=== PATIENT | female | born 1935 | race Caucasian/White ===

== ENCOUNTER 2018-11-22 14:01 | Inpatient (IN) | payer MEDICARE, OTHER ==
[~2018-11-22] VITALS: Ht 162.6 cm; Wt 46.7 kg
[~2018-11-22 14:01] MED LIST: ACET-868 PO; ARIP2TAB3 PO; DIVA125T2 PO; DIVA250T4 PO; DOCU100C68 PO; DOES NOT RECALL MEDS; ESCI10TA PO; LORA-258 PO; OLAN5TAB3 PO; SENN-18 PO
[2018-11-22] MEDS ORDERED: LEVO25TA9 PO (14:41)
[2018-11-22] MEDS ORDERED: SIMV10TA6 PO (14:41)
[2018-11-22] MEDS ORDERED: SEVE800T8 PO (14:41)
[2018-11-22] MEDS ORDERED: BUPR300T54 PO (14:41)
[2018-11-22] MEDS ORDERED: FERR325T23 PO (14:41)
[2018-11-22] MEDS ORDERED: OMEP20CA10 PO (14:41)
[2018-11-22] MEDS ORDERED: FOLI1TAB16 PO (14:41)
[2018-11-22] MEDS ORDERED: FOLI0.8T2 PO (14:41)
[2018-11-22] MEDS ORDERED: DIVA-78 PO (14:41)
--- NOTE | 2018-11-22 14:53 | NUR ---
PT PRESENTS TO ER C/O CONFUSION AND AGITATION WITH RECENT DX UTI FROM SNF. PER DAUGHTER, PT IS NON-COMPLIANT WITH MEDICATIONS RECENTLY. PT IS GETTING AGITATED WHEN CARE IS RENDERED. RESP EVEN UNLABORED. SKIN WARM DRY. IN ER BED 16.
[2018-11-22 16:10] LABS: APPEARANCE,URINE Cloudy (CLEAR); BILIRUBIN,URINE Negative (NEGATIVE); BLOOD, URINE Small Ery/uL (NEGATIVE); COLOR,URINE Yellow (YELLOW); KETONES,URINE Negative (NEGATIVE); LEUKOCYTE ESTERASE ,URINE Large (NEGATIVE); NITRITE, URINE Negative (NEGATIVE); PH,URINE 8.5 (5.0-8.0); PROTEIN,URINE 30 mg/dl (NEGATIVE); UGLUCOSE Negative (NEGATIVE); UROBILINOGEN,URINE 0.2 EU/dL (0.2)
--- NOTE | 2018-11-22 16:13 | NUR ---
LON SHEN, CALLED FROM [facility]. STATES SPECIMENS ARE HEMOLYZED AND SHE WILL ASK GRANITE INSTALLER TO COME REDRAW
[2018-11-22 16:18] LABS: BACTERIA,URINE Few /HPF (None Seen); SQUAMOUS EPITHELIAL CELL,UR Few /HPF (None Seen); WBC,URINE 51-80 /HPF (0-3)
[2018-11-22 16:36] LABS: BASOPHILS % (AUTO) 0.6 % (0.0-2.0); HEMATOCRIT 35 % (33-45); HEMOGLOBIN 11.5 g/dL (11.5-14.8); LYMPHOCYTES # (AUTO) 1.7 /CMM (0.8-4.8); LYMPHOCYTES % (AUTO) 30.8 % (20.0-44.0); MEAN CORPUSCULAR HGB CONC 33 g/dl (31.0-36.0); MEAN CORPUSCULAR VOLUME 109 fL (82-100); MONOCYTES # (AUTO) 0.5 /CMM (0.1-1.30); MONOCYTES % (AUTO) 8.6 % (2.0-12.0); NEUTROPHILS # (AUTO) 3.2 /CMM (1.8-8.9); PLATELET COUNT (AUTO) 132 /CMM (150-450); RED BLOOD CELL COUNT(AUTO) 3.23 MIL/uL (4.0-5.2); WHITE BLOOD COUNT (AUTO) 5.4 K/uL (4.3-11.0)
[2018-11-22 16:45] LABS: CALCIUM, SERUM 9.5 mg/dL (8.5-10.1); CARBON DIOXIDE 30 mmol/L (21-32); CHLORIDE 106 mmol/L (98-107); CREATININE 3.5 mg/dL (0.6-1.3); GLUCOSE 103 mg/dL (74-106); POTASSIUM 3.7 mmol/L (3.5-5.1); SODIUM SERUM 144 mmol/L (136-145); UREA NITROGEN, BLOOD 48 mg/dL (7-18)
[2018-11-22 16:59] LABS: ALANINE AMINOTRANSFERASE 29 U/L (12-78); ALBUMIN 3.1 g/dL (3.4-5.0); ALCOHOL, BLOOD < 3 mg/dL (0-0); ALKALINE PHOSPHATASE 97 U/L (46-116); ASPARTATE AMINOTRANSFERASE 24 U/L (15-37); BILIRUBIN,DIRECT 0.1 mg/dL (0.0-0.2); BILIRUBIN,TOTAL 0.2 mg/dL (0.2-1.0); TOTAL PROTEIN, SERUM 6.7 g/dL (6.4-8.2)
[2018-11-22 17:00] LABS: ACETAMINOPHEN < 2 ug/ml (10-30); SALICYLATE 1.3 mg/dL (2.8-20.0)
--- NOTE | 2018-11-22 17:12 | NUR ---
JONNIE GARNICA [phone] - PSYCHIATRIST
[2018-11-22] MEDS ORDERED: CEFTRIAXONE 2 G in IV D5W 100 ML IV SCH (17:30)
--- NOTE | 2018-11-22 17:32 | NUR ---
CALLED PHARMACY FOR LASHANDA
--- NOTE | 2018-11-22 17:35 | NUR ---
DR. GARNICA SEEN PATIENT AT , PER MD, SHE FOLLOWS PATIENT AT [facility], AND WILL FOLLOW THE PATIENT TO MEDICAL FLOOR.
[2018-11-22] MEDS ORDERED: ONDANSETRON HCL/PF 4 MG/2 ML VIAL IVP PRN (18:00)
[2018-11-22] MEDS ORDERED: Z GUARD REMEDY 2 OZ OINT TP PRN (18:00)
[2018-11-22] MEDS ORDERED: ACETAMINOPHEN 325 MG TABLET PO PRN (18:00)
[2018-11-22] MEDS ORDERED: MAGNESIUM HYDROXIDE 30 ML UDC PO PRN (18:00)
[2018-11-22] MEDS ORDERED: HYDROCODONE/APAP 5/325MG 1 EACH TABLET PO PRN (18:00)
[2018-11-22] MEDS ORDERED: MAG HYDROX/AL HYDROX/SIMETH 30 ML UDC PO PRN (18:00)
--- NOTE | 2018-11-22 18:01 | NUR ---
CALLED DIETARY FOR RENAL DIET
--- NOTE | 2018-11-22 18:19 | NUR ---
GIVEN DINNER TRAY. AWAITING BED ASSIGNMENT
--- NOTE | 2018-11-22 18:27 | NUR ---
CALLEED NURSING DIRECTOR GENERAL TO F/U ON BED. PER DAVID, ON BED UNTIL AFTER SHIFT CHANGE BECAUSE PT REQUIRES A SITTER
--- NOTE | 2018-11-22 18:30 | NUR ---
ms/rn notes NEW ADMITTED PATIENT IS A83 YO FEMALE FROM [facility] WITH DX OF UTI AND ENCEPHALOPATHY, ALERT, ORIENTED, PARTICIPATIVE TO CARE. WITH HX OF BEHAVIOR PROBLEM . INCONTINENT USES DIAPER. VITAL SIGNS NORMAL. FALL PRECAUTION. SKIN CHECK, BELONGINGS INVENTORIED. POLST RECEIVED ULL CODE, ABLE TO SWALLOW MEDS, ON HD, WILL MONITOR. VITAL SIGNS CHECK.
--- NOTE | 2018-11-22 19:14 | NUR ---
REPORT GIVEN TO HERB BURNS FOR ZENA
--- NOTE | 2018-11-22 19:15 | NUR ---
RECEIVED REPORT FROM JHON FOR ZENA
--- NOTE | 2018-11-22 19:51 | NUR ---
[facility] 309-1 DX: ENCEPHALOPATHY, UTI DR. LAST
[2018-11-22 20:00] VITALS: BP 120/56
--- NOTE | 2018-11-22 20:23 | NUR ---
GAVE REPORT TO RN FOR 309-1 FOR ZENA
[2018-11-22 20:30] VITALS: BP 120/56
--- NOTE | 2018-11-22 20:45 | NUR ---
PT TRANSFERRED TO MS BED 309-1 VIA SIDRA WITH EMT
[2018-11-22] MEDS ORDERED: SEVELAMER CARBONATE 800 MG TABLET PO ONE (21:30)
[2018-11-22] MEDS: SIMVASTATIN 10 MG TABLET PO SCH (22:03)
[2018-11-22] MEDS: DIVALPROEX SODIUM 500 MG TABLET.DR PO SCH (22:06)
[2018-11-22] MEDS: ACETAMINOPHEN 325 MG TABLET PO PRN (23:01)
--- NOTE | 2018-11-23 06:00 | NUR ---
MS/RN NOTES PATIENT IN BED, RESTING COMFORTABLY IN BED, ABLE TO SLEEP DURING THE NIGHT, CAN COOPERATE , MONITORED FOR SAFETY BY SITTER. CALL LIGHTS WITHIN REACH. BED LOCK. SKIN WARM TO TOUCH.WILL ENDORAE TO AM RN FOR ZENA.
[2018-11-23 06:24] LABS: CALCIUM, SERUM 8.7 mg/dL (8.5-10.1); CARBON DIOXIDE 26 mmol/L (21-32); CHLORIDE 106 mmol/L (98-107); CREATININE 4.5 mg/dL (0.6-1.3); GLUCOSE 89 mg/dL (74-106); MAGNESIUM 2.4 mg/dL (1.8-2.4); PHOSPHORUS 4.2 mg/dL (2.5-4.9); POTASSIUM 3.4 mmol/L (3.5-5.1); SODIUM SERUM 142 mmol/L (136-145); UREA NITROGEN, BLOOD 53 mg/dL (7-18)
[2018-11-23 06:25] LABS: CHOLESTEROL 187 mg/dL (<200); HDL CHOLESTEROL 61 mg/dL (40-60); LDL 89 mg/dL (0-99); TRIGLYCERIDES 184 mg/dL (30-150)
[2018-11-23 06:39] LABS: BASOPHILS % (AUTO) 0.5 % (0.0-2.0); EOSINOPHILS % (AUTO) 3.8 % (0.0-6.0); HEMATOCRIT 31 % (33-45); HEMOGLOBIN 10.2 g/dL (11.5-14.8); LYMPHOCYTES % (AUTO) 42.3 % (20.0-44.0); MEAN CORPUSCULAR HGB CONC 33 g/dl (31.0-36.0); MEAN CORPUSCULAR VOLUME 108 fL (82-100); MONOCYTES # (AUTO) 0.3 /CMM (0.1-1.30); NEUTROPHILS # (AUTO) 2.2 /CMM (1.8-8.9); NEUTROPHILS % (AUTO) 46.4 % (43.0-81.0); PLATELET COUNT (AUTO) 126 /CMM (150-450); RED BLOOD CELL COUNT(AUTO) 2.84 MIL/uL (4.0-5.2); WHITE BLOOD COUNT (AUTO) 4.7 K/uL (4.3-11.0)
--- NOTE | 2018-11-23 07:40 | NUR ---
Nurse Notes: received report from the night nurse Darlene Mtz RN, patient with IV infusing NS @ 75 cc per hour. Patient needs ortho consult, doctor to doctor to be notified. IV infusing in right AC. Pain level is 6-7/10. having bilateral gout pain. Addendum: 11/23/18 at 1633 by COLBY BLAS RN above note charted on wrong patient. Received report this morning by Jahaira Arellano RN, Received patient resting in bed, sitter in room, watching other patient. Patient also requires more total care.
[2018-11-23 08:00] VITALS: BP 124/104
[2018-11-23] MEDS: SEVELAMER CARBONATE 800 MG TABLET PO SCH ×3 (08:00→17:22)
[2018-11-23 08:03] LABS: EOSINOPHILS % (MANUAL) 2 % (0-4); LYMPHOCYTES % (MANUAL) 49 % (16-48); MONOCYTES % (MANUAL) 6 % (0-11.0); NEUTROPHILS % (MANUAL) 43 (42-76)
[2018-11-23] MEDS: PANTOPRAZOLE 40 MG TABLET.DR PO SCH ×2 (08:30→17:22)
[2018-11-23] MEDS: LEVOTHYROXINE SODIUM 25 MCG TABLET PO SCH (08:31)
[2018-11-23] MEDS: FOLIC ACID 1 MG TABLET PO SCH (09:00)
[2018-11-23] MEDS: BUPROPION XL 150 MG TAB.ER.24 PO SCH (09:00)
[2018-11-23] MEDS: DOCUSATE SODIUM 100 MG CAPSULE PO SCH ×2 (09:00→17:22)
[2018-11-23] MEDS: VIT B CMPLX 3/FA/VIT C/BIOTIN 1 TAB TABLET PO SCH (09:00)
[2018-11-23] MEDS: FERROUS SULFATE (325 MG) 325 MG/TAB TABLET PO SCH (09:00)
[2018-11-23] MEDS: DIVALPROEX SODIUM 500 MG TABLET.DR PO SCH (09:00)
--- NOTE | 2018-11-23 13:30 | NUR ---
Nurse Notes: Both meals taken well, also receiving IV fluids. patient needs social work nurse. Addendum: 11/23/18 at 1647 by COLBY BLAS RN No social work nurse is ordered. Patient will have dialysis tomorrow 11/24, patient usually has dialysis on and Sunday. Addendum: 11/23/18 at 1650 by COLBY BLAS RN Patient is only heplock. Patient was able to take lunch with the OFFICE TECHNOLOGIST. Patient refused her medications this morning, spitting out food, and saying no to taking medications. Breakfast was not taken, lunch taken well.
[2018-11-23 16:00] VITALS: BP 117/63
[2018-11-23] MEDS: CEFTRIAXONE 1 G in IV D5W 50 ML IV SCH (18:21)
--- NOTE | 2018-11-23 19:20 | NUR ---
MSRN RECEIVED SCREAMING, YELLING, UNCOOPERATIVE. REFUSED ANY ASSESSMENT, WANTED TO BE LEFT ALONE. PROVIDED PRIVACY WITH CLOSE SUPERVISION. CONFUSED. TO CONTINUE.
[2018-11-23 20:00] VITALS: BP 154/82
[2018-11-23] MEDS: DIVALPROEX SODIUM 250 MG TABLET.DR PO SCH (21:46)
[2018-11-23] MEDS: SIMVASTATIN 10 MG TABLET PO SCH (21:46)
[2018-11-23] MEDS: OLANZAPINE 2.5 MG TABLET PO SCH (21:47)
--- NOTE | 2018-11-23 22:00 | NUR ---
MSRN REFUSED TO TAKE HER DUE MEDS. PREFERS MALE STAFF, TOOK MEDS ON HER OWN AFTER FEW MINUTES. POSITIONS SELF PER COMFORT. CLOSELY WATCHED
--- NOTE | 2018-11-24 03:24 | NUR ---
MSRN SLEEPING APPEARS COMFORTABLE AGREEDTO HAVE LATE HS CARE WITH SITTER.
--- NOTE | 2018-11-24 07:00 | NUR ---
MSRN ENDORSED DTO INCOMING RN FOR CONTINUITY OF CARE.
--- NOTE | 2018-11-24 07:30 | NUR ---
MSRN. PT RECEIVED A&0X2, TOLERATING ROOM AIR WITHOUT DISTRESS AND DENIES PAIN, PT WITHOUT OBVIOUS DISTRESS OR DISCOMFORT. PT WITH IVC AT R AC PAINFUL TO FLUSH, WILL D/C AND REPLACE. PT WITH 1:1 FOR SAFETY. BED IN LOWEST LOCKED POSITION WITH HANDRAILSX3 CAN CALL CALABRESE WITHIN REACH. PT REPOSITIONED AND FEELS FLOATED. PT BRIEFED ON TODAY'S POC AND IS WITHOUT CONCERN OR COMPLAINT AT THIS TIME.
[2018-11-24 08:00] VITALS: BP 132/59
[2018-11-24] MEDS: DIVALPROEX SODIUM 250 MG TABLET.DR PO SCH ×2 (08:32→21:35)
[2018-11-24] MEDS: BUPROPION XL 150 MG TAB.ER.24 PO SCH (08:33)
[2018-11-24] MEDS: PANTOPRAZOLE 40 MG TABLET.DR PO SCH (08:38)
[2018-11-24] MEDS: VIT B CMPLX 3/FA/VIT C/BIOTIN 1 TAB TABLET PO SCH (08:38)
[2018-11-24] MEDS: FERROUS SULFATE (325 MG) 325 MG/TAB TABLET PO SCH (08:38)
[2018-11-24] MEDS: SEVELAMER CARBONATE 800 MG TABLET PO SCH ×3 (08:38→17:33)
[2018-11-24] MEDS: DOCUSATE SODIUM 100 MG CAPSULE PO SCH ×2 (08:38→17:33)
[2018-11-24] MEDS: FOLIC ACID 1 MG TABLET PO SCH (08:38)
[2018-11-24] MEDS: LEVOTHYROXINE SODIUM 25 MCG TABLET PO SCH (08:38)
[2018-11-24] MEDS ORDERED: POTASSIUM CHLORIDE 20 MEQ TAB.PRT.SR PO ONE (10:30)
[2018-11-24 12:53] LABS: CARBON DIOXIDE 26 mmol/L (21-32); CHLORIDE 108 mmol/L (98-107); CREATININE 5.6 mg/dL (0.6-1.3); GLUCOSE 108 mg/dL (74-106); MAGNESIUM 2.6 mg/dL (1.8-2.4); PHOSPHORUS 3.9 mg/dL (2.5-4.9); POTASSIUM 4.3 mmol/L (3.5-5.1); SODIUM SERUM 143 mmol/L (136-145); UREA NITROGEN, BLOOD 63 mg/dL (7-18)
[2018-11-24 13:28] LABS: BASOPHILS % (AUTO) 0.4 % (0.0-2.0); EOSINOPHILS % (AUTO) 4.7 % (0.0-6.0); HEMATOCRIT 32 % (33-45); LYMPHOCYTES # (AUTO) 1.5 /CMM (0.8-4.8); LYMPHOCYTES % (AUTO) 31.7 % (20.0-44.0); MEAN CORPUSCULAR HGB CONC 34 g/dl (31.0-36.0); MEAN CORPUSCULAR VOLUME 109 fL (82-100); MONOCYTES # (AUTO) 0.3 /CMM (0.1-1.30); MONOCYTES % (AUTO) 7.3 % (2.0-12.0); NEUTROPHILS # (AUTO) 2.6 /CMM (1.8-8.9); NEUTROPHILS % (AUTO) 55.9 % (43.0-81.0); PLATELET COUNT (AUTO) 147 /CMM (150-450); RED BLOOD CELL COUNT(AUTO) 2.97 MIL/uL (4.0-5.2); WHITE BLOOD COUNT (AUTO) 4.7 K/uL (4.3-11.0)
[2018-11-24] MEDS ORDERED: NEPRO VAN 237 ML CAN PO PRN (14:30)
[2018-11-24 14:37] LABS: EOSINOPHILS % (MANUAL) 8 % (0-4); LYMPHOCYTES % (MANUAL) 29 % (16-48); MONOCYTES % (MANUAL) 3 % (0-11.0); NEUTROPHILS % (MANUAL) 56 (42-76); REACTIVE LYMPHOCYTES 4 % (0-0)
[2018-11-24 16:00] VITALS: BP 104/56
[2018-11-24] MEDS: CEFTRIAXONE 1 G in IV D5W 50 ML IV SCH (17:36)
--- NOTE | 2018-11-24 18:25 | NUR ---
MSRN. PT REMAINS A&0X2, TOLERATING ROOM AIR WITHOUT DISTRESS AND DENIES PAIN, PT WITHOUT OBVIOUS DISTRESS OR DISCOMFORT. PT WITH IVC AT R WRIST WITH IVC AT TKO. PT WITH 1:1 FOR SAFETY. BED IN LOWEST LOCKED POSITION WITH HANDRAILSX3 CAN CALL CALABRESE WITHIN REACH. PT REPOSITIONED AND FEELS FLOATED Q2HR OR SOONER. PT IS WITHOUT CONCERN OR COMPLAINT AT THIS TIME. WILL ENDORSE TO NIGHT NURSE AT BEDSIDE FOR ZENA.
--- NOTE | 2018-11-24 19:15 | NUR ---
MS/RN NOTES RECEIVED PT. LYING IN BED. PT. IS AWAKE, ALERT AND ORIENTED X2. BREATHING EVEN AND UNLABORED ON ROOM AIR. NO SOB, RESPIRATORY DISTRESS OR COMPLAINTS OF PAIN NOTED AT THIS TIME. PT. WITH RIGHT WRIST 22 GAUGE IV SALINE LOCK PRESENT, PATENT AND INTACT. PT. WITH 1:1 SITTER PRESENT AT BEDSIDE. BED LOCKED AND IN LOWEST POSITION, SIDE RAILS UP X3, BED ALARM ON, CALL LIGHT WITHIN REACH, WILL CONTINUE TO MONITOR.
[2018-11-24 20:00] VITALS: BP 105/55
[2018-11-24] MEDS: SIMVASTATIN 10 MG TABLET PO SCH (21:35)
[2018-11-24] MEDS: OLANZAPINE 2.5 MG TABLET PO SCH (21:35)
--- NOTE | 2018-11-25 07:03 | NUR ---
MS/RN NOTES PT. IS LYING IN BED. PT. IS AWAKE, ALERT AND ORIENTED X2. BREATHING EVEN AND UNLABORED ON ROOM AIR. NO SOB, RESPIRATORY DISTRESS OR COMPLAINTS OF PAIN NOTED AT THIS TIME. PT. WITH RIGHT WRIST 22 GAUGE IV SALINE LOCK PRESENT, PATENT AND INTACT. PT. WITH 1:1 SITTER PRESENT AT BEDSIDE. ALL PT. NEEDS MET. BED LOCKED AND IN LOWEST POSITION, SIDE RAILS UP X3, BED ALARM ON, CALL LIGHT WITHIN REACH, WILL ENDORSE TO DAYSHIFT NURSE FOR CONTINUITY OF CARE.
[2018-11-25 08:00] VITALS: BP 119/62
[2018-11-25] MEDS: SEVELAMER CARBONATE 800 MG TABLET PO SCH ×3 (08:00→17:34)
[2018-11-25] MEDS: LEVOTHYROXINE SODIUM 25 MCG TABLET PO SCH (08:36)
[2018-11-25] MEDS: PANTOPRAZOLE 40 MG TABLET.DR PO SCH (08:36)
--- NOTE | 2018-11-25 08:45 | NUR ---
MS RN OPENING NOTES PT AWAKE IN BED. A/O X1-2. NOT IN ANY KIND OF DISTRESS. RESPIRATIONS EVEN AND UNLABORED. DENIES ANY PAIN OR DISCOMFORT AT THIS TIME. PIV ON RIGHT WRIST G22, INTACT AND OPERATIONAL AND WITH NS AT TKO. KEPT COMFORTABLE, CLEAN AND DRY. HOB ELEVATED, IN LOW AND LOCKED POSITION, SIDE RAILS UP X3 AND ON 1:1 SITTER. WILL CONTINUE TO MONITOR.
[2018-11-25] MEDS: DOCUSATE SODIUM 100 MG CAPSULE PO SCH ×2 (10:11→17:33)
[2018-11-25] MEDS: VIT B CMPLX 3/FA/VIT C/BIOTIN 1 TAB TABLET PO SCH (10:12)
[2018-11-25] MEDS: BUPROPION XL 150 MG TAB.ER.24 PO SCH (10:12)
[2018-11-25] MEDS: FOLIC ACID 1 MG TABLET PO SCH (10:12)
[2018-11-25] MEDS: FERROUS SULFATE (325 MG) 325 MG/TAB TABLET PO SCH (10:12)
[2018-11-25 11:21] LABS: BASOPHILS % (AUTO) 0.3 % (0.0-2.0); EOSINOPHILS % (AUTO) 4.4 % (0.0-6.0); HEMATOCRIT 32 % (33-45); HEMOGLOBIN 10.9 g/dL (11.5-14.8); LYMPHOCYTES # (AUTO) 1.4 /CMM (0.8-4.8); LYMPHOCYTES % (AUTO) 25.2 % (20.0-44.0); MEAN CORPUSCULAR HGB CONC 34 g/dl (31.0-36.0); MEAN CORPUSCULAR VOLUME 107 fL (82-100); MONOCYTES # (AUTO) 0.5 /CMM (0.1-1.30); MONOCYTES % (AUTO) 8.5 % (2.0-12.0); NEUTROPHILS # (AUTO) 3.5 /CMM (1.8-8.9); NEUTROPHILS % (AUTO) 61.6 % (43.0-81.0); PLATELET COUNT (AUTO) 124 /CMM (150-450); RED BLOOD CELL COUNT(AUTO) 3.02 MIL/uL (4.0-5.2); WHITE BLOOD COUNT (AUTO) 5.7 K/uL (4.3-11.0)
[2018-11-25 11:35] LABS: CALCIUM, SERUM 8.6 mg/dL (8.5-10.1); CARBON DIOXIDE 27 mmol/L (21-32); CHLORIDE 103 mmol/L (98-107); CREATININE 4.7 mg/dL (0.6-1.3); GLUCOSE 100 mg/dL (74-106); MAGNESIUM 2.4 mg/dL (1.8-2.4); PHOSPHORUS 3.8 mg/dL (2.5-4.9); POTASSIUM 4.6 mmol/L (3.5-5.1); SODIUM SERUM 139 mmol/L (136-145); UREA NITROGEN, BLOOD 48 mg/dL (7-18)
--- NOTE | 2018-11-25 13:55 | NUR ---
PT ENDORSED TO KATY ANGEL, POC AND PT STATUS DISCUSSED AT BEDSIDE.
[2018-11-25 16:00] VITALS: BP 132/63
--- NOTE | 2018-11-25 16:40 | NUR ---
1600 ASSUMED CARE OF PATIENT. PATIENT ALERT AND ORIENTED TIMES 2-3. PATIENT HAS NO SIGNS OF DISTRESS OR DISCOMFORT AT THIS TIME. PATIENT DENIES SI AND HI AT THIS TIME. PATIENT HAS 1:1 JONNIE RN AT BEDSIDE. WILL CONTINUE TO MONITOR THROUGHOUT SHIFT. JEANNE CRISOSTOMO RN
[2018-11-25 20:00] VITALS: BP 113/57
[2018-11-25] MEDS: OLANZAPINE 2.5 MG TABLET PO SCH (21:05)
[2018-11-25] MEDS: DIVALPROEX SODIUM 250 MG TABLET.DR PO SCH (21:05)
[2018-11-25] MEDS: SIMVASTATIN 10 MG TABLET PO SCH (21:05)
--- NOTE | 2018-11-25 21:26 | NUR ---
MS/RN OPENING NOTES PATIENT IN BED, AWAKE, ALERT X1, ABLE TO VERBALIZE NEEDS, SKIN WARM TO TOUCH. RESPIRATIONS EVEN AND UNLABORED, REQUIRE ASSISTANCE FOR REPOSITION AND TURNING, WITH SITTER DUE TO BEHAVIOR PROBLEM. KEPT WARM WILL MONITOR.
[2018-11-25 21:33] VITALS: BP 132/63
[2018-11-25 21:34] VITALS: BP 132/63
--- NOTE | 2018-11-26 00:06 | NUR ---
MS/RN NOTES PATIENT TRIES TO JUMP IN BED,AND SITTER AT BEDSIDE, SAFETY MEASURES PROVIDED
--- NOTE | 2018-11-26 06:41 | NUR ---
309-1 MS/RN NOTES PATIENT IN BED, SLEPT INTERMITENTLY , REQUIRE ASSSISTANCE FOR SAFETY PATIENT ATTEMPTS TO JUMP IN BED AND CAN EASILY CHANGE BEHAVIOR AT IMPULSE. RESPIRATIONS EVEN AND UNLABORED, KEPT WARM. WILL CONTINUE TO MONITOR, WILL ENDORSE TO AM RN FOR ZENA.
--- NOTE | 2018-11-26 07:10 | NUR ---
RN OPENING NOTES PT AWAKE AND RESTING IN BED. PT CONFUSED. 1:1 SITTER AT BEDSIDE. NO APPARENT S/S OF PAIN, DISTRESS OR SOB AT THIS TIME. PT HAS A RIGHT WRIST IV, INTACT AND PATENT. SAFETY PRECAUTIONS IN PLACE, BED IN LOWEST LOCKED POSITION, X2 SIDE RAILS UP AND CALL LIGHT WITHIN REACH. WILL CONTINUE TO MONITOR.
[2018-11-26] MEDS: PANTOPRAZOLE 40 MG TABLET.DR PO SCH (07:30)
[2018-11-26] MEDS: LEVOTHYROXINE SODIUM 25 MCG TABLET PO SCH (07:30)
[2018-11-26 08:00] VITALS: BP 146/70
[2018-11-26] MEDS: SEVELAMER CARBONATE 800 MG TABLET PO SCH ×3 (08:00→17:02)
[2018-11-26] MEDS: FOLIC ACID 1 MG TABLET PO SCH (09:00)
[2018-11-26] MEDS: DOCUSATE SODIUM 100 MG CAPSULE PO SCH ×2 (09:00→16:58)
[2018-11-26] MEDS: BUPROPION XL 150 MG TAB.ER.24 PO SCH (09:00)
[2018-11-26] MEDS: VIT B CMPLX 3/FA/VIT C/BIOTIN 1 TAB TABLET PO SCH (09:00)
[2018-11-26] MEDS: FERROUS SULFATE (325 MG) 325 MG/TAB TABLET PO SCH (09:00)
[2018-11-26] MEDS: OLANZAPINE 2.5 MG TABLET PO SCH ×2 (13:34→21:03)
[2018-11-26 16:15] LABS: CALCIUM, SERUM 8.6 mg/dL (8.5-10.1); CARBON DIOXIDE 26 mmol/L (21-32); CHLORIDE 105 mmol/L (98-107); CREATININE 5.5 mg/dL (0.6-1.3); GLUCOSE 120 mg/dL (74-106); MAGNESIUM 2.7 mg/dL (1.8-2.4); PHOSPHORUS 4.3 mg/dL (2.5-4.9); POTASSIUM 4.5 mmol/L (3.5-5.1); SODIUM SERUM 141 mmol/L (136-145); UREA NITROGEN, BLOOD 65 mg/dL (7-18)
[2018-11-26 17:55] VITALS: BP 125/67
--- NOTE | 2018-11-26 19:00 | NUR ---
RN OPENING NOTES PT AWAKE AND RESTING IN BED. PT CONFUSED AND COMBATIVE. PT NEEDS FREQUENT REORIENTING AND REDIRECTING. 1:1 SITTER AT BEDSIDE. NO APPARENT S/S OF PAIN, DISTRESS OR SOB AT THIS TIME. PT HAS A RIGHT WRIST IV, INTACT AND PATENT. SAFETY PRECAUTIONS IN PLACE, BED IN LOWEST LOCKED POSITION, X2 SIDE RAILS UP AND CALL LIGHT WITHIN REACH. WILL ENDORSE TO DAY SHIFT NURSE FOR CONTINUITY OF CARE.
[2018-11-26 19:30] VITALS: BP 154/77
--- NOTE | 2018-11-26 19:31 | NUR ---
MS/RN OPENING NOTES RECEIVED PATIENT IN BED, AWAKE, CAN RESPON WITH SIMPLE QUESTIONS, REQUIRE AT SITTER FOR SAFETY PATIETN HAS BEHAVIOR PROBLEM AND IMPULSIVE AT TIMES. RESPIRATIONS EVEN AND UNLABORED, SKIN WARM TO TOUCH, KEPT WARM. OFFERED AND PROVIDE SNACKS. KEPT BED LOCKED, CALL LIGHTS WITHIN REACH. WILL MONITOR. IV SITE ON RIGHT WRIST AT 20 GAUGE. WILL MONITOR.
[2018-11-26 19:48] VITALS: BP 154/77
[2018-11-26 20:00] VITALS: BP 154/77
--- NOTE | 2018-11-26 20:18 | NUR ---
MS/RN NOTES DIALYSIS NURSE AT BEDSIDE ,PATIENT AWAKE, ALERT AND PARTICIPATIVE TO CARE AND COMPLIANT WITH DIALYSIS AT THIS TIME,WILL MONITOR.
[2018-11-26] MEDS: DIVALPROEX SODIUM 250 MG TABLET.DR PO SCH (21:04)
[2018-11-26] MEDS: SIMVASTATIN 10 MG TABLET PO SCH (21:04)
--- NOTE | 2018-11-27 06:30 | NUR ---
MS/RN NOTES PATIENT ABLE TO SLEEP DURING THE NIGHT, CALM AND COOPERATIVE WITH SITTER. RESPIRATIONS EVEN AND UNLABORE, NO GUARDING OR GRIMACE. WILL ENDORSE TO AM RN FOR ZENA.
--- NOTE | 2018-11-27 08:05 | NUR ---
ms rn received on be, awake,alert,oriented x2,not in any form of distress, denies pain at this time.w/ sitter at bedside for safety, will monitor patient.
--- NOTE | 2018-11-27 09:50 | NUR ---
ms rn was seen by nitin bloom/ orders made and carried out.
[2018-11-27] MEDS: BUPROPION XL 150 MG TAB.ER.24 PO SCH (09:52)
[2018-11-27] MEDS: OLANZAPINE 2.5 MG TABLET PO SCH ×2 (09:52→21:17)
[2018-11-27] MEDS: LEVOTHYROXINE SODIUM 25 MCG TABLET PO SCH (09:54)
[2018-11-27] MEDS: FOLIC ACID 1 MG TABLET PO SCH (09:56)
[2018-11-27] MEDS: DOCUSATE SODIUM 100 MG CAPSULE PO SCH ×2 (09:56→18:36)
[2018-11-27] MEDS: VIT B CMPLX 3/FA/VIT C/BIOTIN 1 TAB TABLET PO SCH (09:56)
[2018-11-27] MEDS: SEVELAMER CARBONATE 800 MG TABLET PO SCH ×3 (09:56→18:37)
[2018-11-27] MEDS: FERROUS SULFATE (325 MG) 325 MG/TAB TABLET PO SCH (09:56)
[2018-11-27] MEDS: PANTOPRAZOLE 40 MG TABLET.DR PO SCH (09:56)
[2018-11-27] MEDS: ACETAMINOPHEN 325 MG TABLET PO PRN (15:03)
[2018-11-27 16:00] VITALS: BP 109/67
[2018-11-27] MEDS ORDERED: clonazePAM 0.5 MG TABLET PO PRN (19:00)
--- NOTE | 2018-11-27 19:15 | NUR ---
MS SOFTWARE SALES CONSULTANT INITIAL NOTES SEEN PT IN BED AWAKE AND ALERT CALMED AT THIS TIME . DENIES ANY PAIN OR ANY DISCOMFORT. BREATHING EVEN AND UNLABORED NOT IN ANY ACUTE DISTRESS NOTED. HEPLOCK PATENT AND INTACT. RE-ORIENTED WHERE SHE AT. KEPT HER WARM AND COMFORTABLE AT ALL TIMES. SITTER AT THE BEDSIDE FOR SAFETY. PLACE CALL LIGHT AT REACH. WILL CONTINUE MONITORING.
[2018-11-27 20:00] VITALS: BP 124/63
[2018-11-27] MEDS: SIMVASTATIN 10 MG TABLET PO SCH (21:17)
[2018-11-27] MEDS: DIVALPROEX SODIUM 250 MG TABLET.DR PO SCH (21:17)
--- NOTE | 2018-11-28 | NUR ---
MS HUMBERTO NOTES PT SLEEPING COMFORTABLY IN BED WITHOUT ANY ACUTE DISTRESS NOTED. KEPT HER WARM AND COMFORTABLE AT ALL TIMES. SITTER AT THE BEDSIDE FOR SAFETY. WILL CONTINUE MONITORING. PLACE CALL LIGHT AT REACH.
--- NOTE | 2018-11-28 07:10 | NUR ---
MS FIBER PICKER CLOSING NOTES PT BACK TO REST AFTER MORNING CARE DONE. PT STABLE DREW THE NIGHT AND SLEPT WELL. NO SIGNS OF ANY AGITATION LAST NIGHT NOTED LONG YOU KNOW HOW TO DEAL WITH HER. NO SIGNS OF ANY DISCOMFORT OR ANY DISTRESS NOTED. PT ALSO AWARE OF HER DIALYSIS SCHEDULE. TOLERATED AND COMPLIANT ON HER MEDICATION. KEPT HER WARM AND COMFORTABLE AT ALL TIMES. WILL ENDORSE TO AM NURSE FOR CONTINUITY OF CARE. BED IN LOW AND LOCK IN POSITION WITH SIDE RAILS X2 UP. SITTER AT THE BEDSIDE FOR SAFETY.
--- NOTE | 2018-11-28 07:40 | NUR ---
MS RN RECEIVED ON BED, AWAKE,ALERT,X1,NOT IN ANY FORM OF DISTRESS, RESPIRATIONS EVEN AND UNLABORED,NO SOB NOTED,SITTER AT BEDSIDE,ALL NEEDS ATTENDED.
--- NOTE | 2018-11-28 09:00 | NUR ---
ms torres breakfast served,due meds given,tolerated well.
[2018-11-28] MEDS: FOLIC ACID 1 MG TABLET PO SCH (09:32)
[2018-11-28] MEDS: BUPROPION XL 150 MG TAB.ER.24 PO SCH (09:32)
[2018-11-28] MEDS: OLANZAPINE 2.5 MG TABLET PO SCH ×2 (09:32→21:29)
[2018-11-28] MEDS: LEVOTHYROXINE SODIUM 25 MCG TABLET PO SCH (09:32)
[2018-11-28] MEDS: SEVELAMER CARBONATE 800 MG TABLET PO SCH ×3 (09:32→16:49)
[2018-11-28] MEDS: FERROUS SULFATE (325 MG) 325 MG/TAB TABLET PO SCH (09:32)
[2018-11-28] MEDS: DOCUSATE SODIUM 100 MG CAPSULE PO SCH ×2 (09:32→16:49)
[2018-11-28] MEDS: VIT B CMPLX 3/FA/VIT C/BIOTIN 1 TAB TABLET PO SCH (09:32)
[2018-11-28] MEDS: PANTOPRAZOLE 40 MG TABLET.DR PO SCH (09:36)
--- NOTE | 2018-11-28 14:00 | NUR ---
ms rn was seen by psych md , will be transferred to gps overflow once evaluated by crisis team.
--- NOTE | 2018-11-28 14:21 | NUR ---
JAQUAN Sexton met with SW to inform her that she had a conversation with pt's psychiatrist Dr. Drew who informed her that pt. was having issues with her caregiver. SW contacted Dr. Drew to inquire details of the issue regarding caregiver. Dr. Drew informed SW that the daughter of the pt. had issues with the home based caregiver. She further stated that there is a conflict between the patient and daughter because of that SNF. Dr. Drew further stated that there are no issues, simply pt. wants to be at home instead of a SNF. Pt. is at [facility].
[2018-11-28] MEDS: clonazePAM 0.5 MG TABLET PO SCH (16:50)
--- NOTE | 2018-11-28 18:54 | NUR ---
ms rn on bed, no distress noted.
--- NOTE | 2018-11-28 19:30 | NUR ---
RECEIVED PATIENT IN BED WITH EYES CLOSED; EASILY AROUSABLE. AO X 1; ABLE TO MAKE NEEDS KNOWN. NO ACUTE DISTRESS NOTED. NO SIGNS OF PAIN NOTED. EASILY AGITATED. SITTER AT BEDSIDE FOR SAFETY. REASSURANCE GIVEN TO KEEP PATIENT CALM. SAFETY REMINDERS GIVEN. IV SITE PATENT, INTACT; FLUSHED. ON LOW BED WITH BILATERAL UPPER SIDE RAILS UP. CALL CALABRESE WITHIN EASY REACH. WILL CONTINUE TO MONITOR.
[2018-11-28 20:00] VITALS: BP 104/57
[2018-11-28] MEDS: SIMVASTATIN 10 MG TABLET PO SCH (21:29)
--- NOTE | 2018-11-29 06:00 | NUR ---
PATIENT AWAKE, EASILY AGITATED. RESPIRATIONS EVEN. NO SIGNS OF PAIN NOTED. DUE MEDS GIVEN WITH NO ASE NOTED. NEEDS ATTENDED. SNACK PROVIDED. KEPT CLEAN, DRY, AND COMFORTABLE. SAFETY PRECAUTIONS AND COMFORT MEASURES IN PLACE. WILL GIVE REPORT TO DAY SHIFT FOR CONTINUITY OF CARE. Addendum: 11/29/18 at 0650 by LELAND CALHOUN RN SITTER AT BEDSIDE
[2018-11-29 08:00] VITALS: BP 149/53
--- NOTE | 2018-11-29 08:00 | NUR ---
m/s portfolio administrator: initial assessment received pt in bed awake, a/ox1-2 with confusion and disorientation to time, place, and situation. pt easily get irritated and agitated. reality orientation provided prn. sitter at bedside. will continue to monitor.
[2018-11-29] MEDS: FERROUS SULFATE (325 MG) 325 MG/TAB TABLET PO SCH (08:13)
[2018-11-29] MEDS: PANTOPRAZOLE 40 MG TABLET.DR PO SCH (08:13)
[2018-11-29] MEDS: FOLIC ACID 1 MG TABLET PO SCH (08:13)
[2018-11-29] MEDS: DOCUSATE SODIUM 100 MG CAPSULE PO SCH (08:13)
[2018-11-29] MEDS: clonazePAM 0.5 MG TABLET PO SCH (08:13)
[2018-11-29] MEDS: SEVELAMER CARBONATE 800 MG TABLET PO SCH ×2 (08:14→13:35)
[2018-11-29] MEDS: OLANZAPINE 2.5 MG TABLET PO SCH (08:14)
[2018-11-29] MEDS: LEVOTHYROXINE SODIUM 25 MCG TABLET PO SCH (08:14)
[2018-11-29] MEDS: VIT B CMPLX 3/FA/VIT C/BIOTIN 1 TAB TABLET PO SCH (08:14)
[2018-11-29] MEDS ORDERED: BUPROPION XL 150 MG TAB.ER.24 PO SCH (09:00)
--- NOTE | 2018-11-29 11:30 | NUR ---
m/s accounts receivable bookkeeper: md visit seen and examined by nitin (acnp) with order to d'c back to snf with Discharge instructions <1. DC to [facility], 2. Continue psych meds per psychiatry and f/u with psychiatry in the next, week, 3. Hold depakote for now, 4. f/u with nephro for HD. order acknowledged. case management making arrangement.
--- NOTE | 2018-11-29 12:05 | NUR ---
m/s strategic marketing leader: notes philip morocho (daughter) notified and made aware re: d'c back to [facility] today, spoke to her over the phone.
--- NOTE | 2018-11-29 12:30 | NUR ---
m/s demolition worker: notes pt wants to wears her clothes now and assisted by sitter. unable to find pt property management form when admitted on the . pt for picking supervisor by ambulance this afternoon. report given to kevin (rn wood preparation supervisor) at [facility] for continuity of care.
--- NOTE | 2018-11-29 14:00 | NUR ---
m/s surface water manager: notes resting comfortable in bed with no distress noted. will continue to monitor. sitter remains at bedside.
--- NOTE | 2018-11-29 15:10 | NUR ---
m/s concrete smoother: notes ambulance here and report given to one of the crew. h/l removed with tip intact with no swelling, no redness, and no bleeding noted.
--- NOTE | 2018-11-29 15:25 | NUR ---
m/s tube dispatcher: discharged discharged back to snf in stable condition with all belongings and d'c papers.
== END 2018-11-29 15:15 | DRG 689 ==
LOC: ER 14:05 → MED 20:48
PROVIDERS: ADMIT Internal Medicine; ATTEND Registered Nurse
PROC: 5A1D70Z Performance of Urinary Filtration, Intermittent, Less than 6 Hours Per Day (ICD-10-PCS; principal; 2018-11-24)
PROC: 5A1D70Z Performance of Urinary Filtration, Intermittent, Less than 6 Hours Per Day (ICD-10-PCS; 2018-11-26)
PROC: 5A1D70Z Performance of Urinary Filtration, Intermittent, Less than 6 Hours Per Day (ICD-10-PCS; 2018-11-28)
DX: N39.0 Urinary tract infection, site not specified (principal); N18.6 End stage renal disease; G93.41 Metabolic encephalopathy; F03.91 Unspecified dementia, unspecified severity, with behavioral disturbance; F23 Brief psychotic disorder; I12.0 Hypertensive chronic kidney disease with stage 5 chronic kidney disease or end stage renal disease; Z99.2 Dependence on renal dialysis; D69.6 Thrombocytopenia, unspecified; E78.5 Hyperlipidemia, unspecified; K21.9 Gastro-esophageal reflux disease without esophagitis; E87.6 Hypokalemia; D64.9 Anemia, unspecified; F31.9 Bipolar disorder, unspecified; Z91.14 Patient's other noncompliance with medication regimen
CPT/HCPCS: 36415; 70450-TC; 73090-TC; 80048-TC; 80061-TC; 80076-TC; 80305; 81000-TC; 82962-TC; 83605-TC; 83735-TC; 84100-TC; 85025-TC; 87040-TC; 87081-TC; 87086-TC; 90935-TC; A6253; G0378; G0480; J0696; J7050; J7060